=== PATIENT | female | born 1960 | race African-American/Black ===

== ENCOUNTER 2022-11-22 11:20 | Emergency (ER) | payer BC ==
[~2022-11-22] VITALS: Ht 160 cm; Wt 81.6 kg
[2022-11-22] MEDS ORDERED: TEGRETOL200 MG PO (11:33)
[2022-11-22] MEDS ORDERED: IRBESARTAN150 MG PO (11:33)
[2022-11-22] MEDS ORDERED: AMRIX15 MG PO (11:34)
[2022-11-22] MEDS ORDERED: NORTRIPTYLINE H MC (11:34)
[2022-11-22] MEDS ORDERED: PRAVASTATIN SOD80 MG PO (11:34)
== END 2022-11-22 18:58 | disposition home or self-care (01) ==
LOC: ER 11:20
DX: R42 Dizziness and giddiness (principal); I10 Essential (primary) hypertension; R56.9 Unspecified convulsions; Z88.6 Allergy status to analgesic agent; Z20.822 Contact with and (suspected) exposure to COVID-19